=== PATIENT | female | born 1945 | race Caucasian/White ===

== ENCOUNTER 2017-10-10 07:52 | Day surgery (SDC) | payer MEDICARE, OTHER ==
[~2017-10-10 07:52] MED LIST: Cefuroxime 10 MG/ML SYRINGE EYERT SCH; Lidocaine 1% PF 2 ML SDV INJECT SCH; Pilocarpine 4% Ophth Soln 15 ML Bot EYERT SCH
[2017-10-10] MEDS: Polymyxin B/Trimethoprim 10 ML Bottle EYERT SCH ×3 (08:11→09:41)
[2017-10-10] MEDS: Brimonidine 0.2% Ophth Soln 5 ML Bottle EYERT SCH ×3 (08:16→09:41)
--- NOTE | 2017-10-10 08:18 | PCM.PREANE ---
Preanesthetic Assessment - Anesthesia/Transfusion/Family Hx Anesthesia History: Prior Anesthesia Without Reaction Family History of Anesthesia Reaction: No - Review of Systems General: No Symptoms Pulmonary: No Symptoms Cardiovascular: Other (Hypertension) Gastrointestinal: No Symptoms Neurological: No Symptoms Other: Reports: Diabetes (oral medications controlled) - Physical Assessment NPO Status Date: 10/09/17 NPO Status Time: 18:00 Pulse: 56 O2 Sat by Pulse Oximetry: 97 Respiratory Rate: 16 Blood Pressure: 142/75 Temperature: 36.3 C Height: 1.57 m Weight: 70.307 kg ASA Class: 2 Mental Status: Alert & Oriented x3 Airway Class: Mallampati = 2 Dentition: Reports: Normal Dentition Thyro-Mental Finger Breadths: 3 Mouth Opening Finger Breadths: 3 ROM/Head Extension: Full Lungs: Clear to Auscultation, Normal Respiratory Effort Cardiovascular: Regular Rate, Murmurs (Noted since childhood. Never symptomatic. ) - Allergies Allergies/Adverse Reactions: Allergies Allergy/AdvReac Type Severity Reaction Status Date / Time Penicillins Allergy Rash Verified 10/09/17 12:17 - Anesthesia Plan Beta Ed: Labetalol Med Last Dose Date: 10/10/17 Med Last Dose Time: 06:15 - Acknowledgements Anesthesia Type Planned: MAC Pt an Appropriate Candidate for the Planned Anesthesia: Yes Alternatives and Risks of Anesthesia Discussed w Pt/Guardian: Yes Pt/Guardian Understands and Agrees with Anesthesia Plan: Yes PreAnesthesia Questionnaire - HOME MEDS Home Medications: Home Meds ALPRAZolam [Xanax] 0.5 mg PO DAILY PRN 10/09/17 [History] ClonazePAM [KlonoPIN] 0.5 mg PO BEDTIME 10/09/17 [History] Docusate Sodium [Colace] 100 mg PO BEDTIME 10/09/17 [History] Labetalol [Normodyne] 200 mg PO BID 10/09/17 [History] OLANZapine [Olanzapine] 5 mg PO BEDTIME 10/09/17 [History] atorvaSTATin [Lipitor] 40 mg PO BEDTIME 10/09/17 [History] metFORMIN [Glucophage XR] 500 mg PO BIDMEALS 10/09/17 [History] - CURRENT (IN HOUSE) MEDS Current Meds: Current Medications Brimonidine Tartrate (Alphagan 0.2% Oph Soln) 0 ml EYERT ASDIRECTED [facility] Stop: 10/10/17 18:00 Cefuroxime Sodium (Zinacef) 0 mg EYERT ASDIRECTED [facility] Stop: 10/10/17 18:00 Lidocaine HCl (Xylocaine-Mpf 1%) 0 ml INJECT ASDIRECTED [facility] Stop: 10/10/17 18:00 Phenylephrine HCl (Juan J-Synephrine 2.5% Ophth Soln) 0 ml EYERT ASDIRECTED [facility] Stop: 10/10/17 18:00 Pilocarpine HCl (Pilocar 4% Ophth Soln) 0 ml EYERT ASDIRECTED [facility] Stop: 10/10/17 18:00 Polymyxin/Trimethoprim Sulfate (Polytrim Ophth Soln) 0 ml EYERT ASDIRECTED [facility] Stop: 10/10/17 18:00 Last Admin: 10/10/17 08:11 Dose: 1 drop Tetracaine HCl (Tetracaine 0.5% Steri-Unit Gladys) 0 ml EYERT ASDIRECTED [facility] Stop: 10/10/17 18:00 Tropicamide (Mydriacyl 1% Ophth Soln) 0 ml EYERT ASDIRECTED [facility] Stop: 10/10/17 18:00
[2017-10-10] MEDS: Phenylephrine 2.5% Ophth Soln 2 ML Bot EYERT SCH ×5 (08:21→09:23)
[2017-10-10] MEDS: Tropicamide 1% Ophth Soln 3 ML Bottle EYERT SCH ×4 (08:26→09:10)
[2017-10-10] MEDS: Tetracaine HCl/PF 0.5% 4 ML Bottle EYERT SCH ×2 (09:15→09:29)
--- NOTE | 2017-10-10 09:47 | PCM48HPAN ---
Post Anesthesia Note - EVALUATION WITHIN 48HRS OF ANESTHETIC Vital Signs in Normal Range: Yes Patient Participated in Evaluation: Yes Respiratory Function Stable: Yes Airway Patent: Yes Cardiovascular Function Stable: Yes Hydration Status Stable: Yes Pain Control Satisfactory: Yes Nausea and Vomiting Control Satisfactory: Yes Mental Status Recovered: Yes
== END 2017-10-10 09:56 | disposition home or self-care (01) ==
LOC: JD.SDS 07:52
PROVIDERS: ATTEND Ophthalmology
DX: H25.813 Combined forms of age-related cataract, bilateral (principal); H21.81 Floppy iris syndrome; H21.40 Pupillary membranes, unspecified eye; I10 Essential (primary) hypertension; E11.9 Type 2 diabetes mellitus without complications; E78.00 Pure hypercholesterolemia, unspecified; Z79.84 Long term (current) use of oral hypoglycemic drugs; Z79.899 Other long term (current) drug therapy; Z88.0 Allergy status to penicillin
CPT/HCPCS: 66982; C1780; J0697; J2001; A9270-GY

== ENCOUNTER 2017-11-07 06:57 | Day surgery (SDC) | payer MEDICARE, OTHER ==
[~2017-11-07 06:57] MED LIST changes: +Cefuroxime 10 MG/ML SYRINGE EYELF SCH; -Cefuroxime 10 MG/ML SYRINGE EYERT SCH; +Pilocarpine 4% Ophth Soln 15 ML Bot EYELF SCH; -Pilocarpine 4% Ophth Soln 15 ML Bot EYERT SCH
[2017-11-07] MEDS: Polymyxin B/Trimethoprim 10 ML Bottle EYELF SCH ×3 (07:09→08:35)
[2017-11-07] MEDS: Brimonidine 0.2% Ophth Soln 5 ML Bottle EYELF SCH ×3 (07:15→08:35)
--- NOTE | 2017-11-07 07:15 | PCM.PREANE ---
Preanesthetic Assessment - Anesthesia/Transfusion/Family Hx Anesthesia History: Prior Anesthesia Without Reaction Family History of Anesthesia Reaction: No Transfusion History: No Prior Transfusion(s) - Review of Systems General: No Symptoms Pulmonary: No Symptoms Cardiovascular: No Symptoms, Other (HTN, positive for murmur, high cholesterol) Gastrointestinal: No Symptoms Neurological: No Symptoms Other: Reports: Diabetes - Physical Assessment NPO Status Date: 11/06/17 NPO Status Time: 18:00 Pulse: 63 O2 Sat by Pulse Oximetry: 96 Respiratory Rate: 15 Blood Pressure: 115/67 Weight: 70.307 kg Mental Status: Alert & Oriented x3 Airway Class: Mallampati = 2 Dentition: Reports: Normal Dentition Thyro-Mental Finger Breadths: 3 Mouth Opening Finger Breadths: 3 ROM/Head Extension: Full Lungs: Clear to Auscultation, Normal Respiratory Effort Cardiovascular: Regular Rate, Regular Rhythm - Allergies Allergies/Adverse Reactions: Allergies Allergy/AdvReac Type Severity Reaction Status Date / Time Penicillins Allergy Rash Verified 11/06/17 12:39 - Blood Blood Available: No Product(s) Available: None - Anesthesia Plan Pre-Op Medication Ordered: None Beta Ed: Labetalol Med Last Dose Date: 11/07/17 Med Last Dose Time: 06:00 - Acknowledgements Anesthesia Type Planned: MAC Pt an Appropriate Candidate for the Planned Anesthesia: Yes Alternatives and Risks of Anesthesia Discussed w Pt/Guardian: Yes Pt/Guardian Understands and Agrees with Anesthesia Plan: Yes PreAnesthesia Questionnaire - HOME MEDS Home Medications: Home Meds ALPRAZolam [Xanax] 0.5 mg PO DAILY PRN 10/09/17 [History] ClonazePAM [KlonoPIN] 0.5 mg PO BEDTIME 10/09/17 [History] Docusate Sodium [Colace] 100 mg PO BEDTIME 10/09/17 [History] Labetalol [Normodyne] 200 mg PO BID 10/09/17 [History] OLANZapine [Olanzapine] 5 mg PO BEDTIME 10/09/17 [History] atorvaSTATin [Lipitor] 40 mg PO BEDTIME 10/09/17 [History] metFORMIN [Glucophage XR] 500 mg PO BIDMEALS 10/09/17 [History] - CURRENT (IN HOUSE) MEDS Current Meds: Current Medications Brimonidine Tartrate (Alphagan 0.2% Ophth Soln) 0 ml EYELF ASDIRECTED [facility] Stop: 11/07/17 19:00 Cefuroxime Sodium (Zinacef) 0 mg EYELF ASDIRECTED [facility] Stop: 11/07/17 19:00 Lidocaine HCl (Xylocaine-Mpf 1%) 0 ml INJECT ASDIRECTED [facility] Stop: 11/07/17 19:00 Phenylephrine HCl (Juan J-Synephrine 2.5% Ophth Soln) 0 ml EYELF ASDIRECTED [facility] Stop: 11/07/17 19:00 Pilocarpine HCl (Pilocar 4% Ophth Soln) 0 ml EYELF ASDIRECTED [facility] Stop: 11/07/17 19:00 Polymyxin/Trimethoprim Sulfate (Polytrim Ophth Soln) 0 ml EYELF ASDIRECTED [facility] Stop: 11/07/17 19:00 Tetracaine HCl (Tetracaine 0.5% Steri-Unit Gladys) 0 ml EYELF ASDIRECTED [facility] Stop: 11/07/17 19:00 Tropicamide (Mydriacyl 1% Ophth Soln) 0 ml EYELF ASDIRECTED [facility] Stop: 11/07/17 19:00
[2017-11-07] MEDS: Phenylephrine 2.5% Ophth Soln 2 ML Bot EYELF SCH ×5 (07:21→08:12)
[2017-11-07] MEDS: Tropicamide 1% Ophth Soln 3 ML Bottle EYELF SCH ×4 (07:24→07:56)
[2017-11-07] MEDS: Tetracaine HCl/PF 0.5% 4 ML Bottle EYELF SCH ×2 (08:03→08:20)
--- NOTE | 2017-11-07 08:31 | PCM48HPAN ---
Post Anesthesia Note - EVALUATION WITHIN 48HRS OF ANESTHETIC Pulse Rate: 60 SaO2: 98 Resp Rate: 22 Blood Pressure: 136/73
== END 2017-11-07 08:49 | disposition home or self-care (01) ==
LOC: JD.SDS 06:57
PROVIDERS: ATTEND Ophthalmology
DX: E11.36 Type 2 diabetes mellitus with diabetic cataract (principal); H25.812 Combined forms of age-related cataract, left eye; H21.81 Floppy iris syndrome; H21.42 Pupillary membranes, left eye; H16.103 Unspecified superficial keratitis, bilateral; H16.223 Keratoconjunctivitis sicca, not specified as Sjogren's, bilateral; H35.342 Macular cyst, hole, or pseudohole, left eye; I10 Essential (primary) hypertension; E78.00 Pure hypercholesterolemia, unspecified; Z79.84 Long term (current) use of oral hypoglycemic drugs; Z79.899 Other long term (current) drug therapy; Z88.0 Allergy status to penicillin
CPT/HCPCS: 66982; C1780; J0697; J2001; A9270-GY